=== PATIENT | male | born 1990 | race Caucasian/White ===

== ENCOUNTER → 2017-08-07 | Outpatient (CLI) | payer OTHER ==
--- NOTE | 2017-08-07 14:30 | US ---
EXAMINATION TYPE: US scrotum with doppler. DATE OF EXAM: 08/07/2017 COMPARISON: NONE CLINICAL HISTORY: 27-year-old male N50.89 Testicular Mass. Lump right testicle Technique: Grayscale and color Doppler Duplex imaging performed of the scrotum. FINDINGS: EXAM MEASUREMENTS: TESTICLES: Right Testicle: 4.5 x 2.1 x 2.8 cm Left Testicle: 4.6 x 2.0 x 2.7 cm Normal homogeneous appearance of both testicles with symmetric size. Satisfactory arterial and venous flow bilaterally. EPIDIDYMIS HEAD: Right Epididymis: 1.3 cm Left Epididymis: 1.1 cm Presence of hydroceles: Moderate sized on both sides. No varicocele seen. IMPRESSION: 1. No testicular mass. No evidence for torsion. 2. Moderate bilateral hydroceles.
== END | disposition home or self-care (01) ==
LOC: RADUSWWP 12:56
PROVIDERS: ATTEND Family Medicine
DX: N43.3 Hydrocele, unspecified (principal)
CPT/HCPCS: 76870; 93975

== ENCOUNTER → 2021-04-05 | Outpatient (CLI) | payer BC, OTHER ==
--- NOTE | 2021-04-05 11:37 | ECHOF ---
Referral Reason:R10.9 Abdominal pain; R07.9 Chest pain MEASUREMENTS -------- HEIGHT: 177.8 cm WEIGHT: 83.9 kg BP: RVIDd: 3.1 cm (< 3.3) IVSd: 1.0 cm (0.6 - 1.1) LVIDd: 4.5 cm (3.9 - 5.3) LVPWd: 1.1 cm (0.6 - 1.1) IVSs: 1.4 cm LVIDs: 2.8 cm LVPWs: 1.6 cm LA Diam: 3.5 cm (2.7 - 3.8) LAESV Index (A-L): 21.78 ml/m Ao Diam: 2.8 cm (2.0 - 3.7) AV Cusp: 2.2 cm (1.5 - 2.6) MV EXCURSION: 21.150 mm (> 18.000) MV EF SLOPE: 147 mm/s (70 - 150) EPSS: 0.6 cm MV E Jeffry: 0.98 m/s MV DecT: 195 ms MV A Jeffry: 0.64 m/s MV E/A Ratio: 1.52 RAP: 5.00 mmHg RVSP: 19.75 mmHg FINDINGS -------- Sinus rhythm. This was a technically good study. The left ventricular size is normal. Left ventricular wall thickness is normal. Overall left vent ricular systolic function is normal with, an EF between 60 - 65 %. The right ventricle is normal in size. Normal LA size by volume 22+/-6 ml/m2. The right atrium is normal in size. Interatrial and interventricular septum intact. The aortic valve is trileaflet, and appears structurally normal. No aortic stenosis or regurgitation. There is trace mitral regurgitation. Mild tricuspid regurgitation present. Right ventricular systolic pressure is normal at < 35 mmHg. Trace/mild (physiologic) pulmonic regurgitation. The aortic root size is normal. Normal inferior vena cava with normal inspiratory collapse consistent with estimated right atrial pre ssure of 5 mmHg. There is no pericardial effusion. CONCLUSIONS -------- 1. The left ventricular size is normal. 2. Left ventricular wall thickness is normal. 3. Overall left ventricular systolic function is normal with, an EF between 60 - 65 %. 4. The aortic valve is trileaflet, and appears structurally normal. No aortic stenosis or regurgitati on. 5. There is trace mitral regurgitation. 6. Mild tricuspid regurgitation present. 7. Trace/mild (physiologic) pulmonic regurgitation. 8. There is no pericardial effusion. [employer] SERVICE OFFICER: Mary Kay Pisano RDCS
--- NOTE | 2021-04-05 12:24 | US ---
EXAMINATION TYPE: US abdomen complete DATE OF EXAM: 04/05/2021 COMPARISON: NONE CLINICAL HISTORY: 30-year-old male R10.9 Abdominal pain; R07.9 Chest pain. EXAM MEASUREMENTS: Liver Length: 12.8 Gallbladder Wall: 0.2m CBD: 0.3m Spleen: 11.6 Right Kidney: 11.8 Left Kidney: 12.5 Pancreas: Suboptimal visualization of the pancreatic tail due to shadowing from bowel gas. Liver: wnl Gallbladder: wnl CBD: wnl Spleen: wnl Kidney: No hydronephrosis. Upper IVC: wnl Abd Aorta: wnl IMPRESSION: Suboptimal visualization of the pancreatic tail. Otherwise, unremarkable sonographic examination of t he abdomen.
== END | disposition home or self-care (01) ==
LOC: RADUSWWP 08:58
PROVIDERS: ATTEND Family Medicine
DX: I08.8 Other rheumatic multiple valve diseases (principal)
CPT/HCPCS: 76700; 93306